=== PATIENT | female | born 1945 | race Caucasian/White ===

== ENCOUNTER 2017-01-01 09:22 | Emergency (ER) | payer OTHER ==
[2017-01-01 09:29] VITALS: BP 120/62; PULSE 78; RESP 20; TEMP 98; O2SAT 98
--- NOTE | 2017-01-01 10:19 | UCPHY ---
H & P Time Seen by Provider: 01/01/17 09:25 Patient Type: New HPI/ROS: 71-year-old female presents complaining of cough fevers chills, nasal congestion , sinus congestion. Review of systems As per HPI-nasal congestion sinus congestion General positive fever positive chills positive weakness HEENT no eye pain no eye discharge. No eye redness, positive sore throat Respiratory positive cough, no shortness of breath Cardiac no chest pain, no peripheral edema GI no abdominal pain, no diarrhea, no constipation, no nausea, no vomiting no flank pain, no hematuria, no dysuria Musculoskeletal no myalgias, no joint pain Heme no easy bruising, no easy bleeding Endo no polyuria, no polydipsia Skin no rashes, no pruritus Neuro no syncope, no dizziness, no headaches Psych is no suicidal ideation, no homicidal ideation Past Medical/Surgical History: Noncontributory Smoking Status: Never smoked Physical Exam: 71-year-old female alert and oriented no acute distress nontoxic appearance Alert and oriented nontoxic appearance, no acute distress afebrile Atraumatic normocephalic Extraocular muscles intact, anicteric Nares mild yellowish discharge, positive nasal turbinates swelling and erythema Oropharynx mild erythema no tonsillar swelling no exudate no uvular deviation, tolerating own secretions Neck supple no lymphadenopathy Lungs clear to auscultation bilaterally Heart regular rate and rhythm Abdomen normoactive bowel sounds soft nontender Extremities no cyanosis clubbing or edema Skin no rash Constitutional: Initial Vital Signs Temperature (C) 36.6 C 01/01/17 09:27 Heart Rate 78 01/01/17 09:27 Respiratory Rate 20 01/01/17 09:27 Blood Pressure 120/62 01/01/17 09:27 O2 Sat (%) 98 01/01/17 09:27 O2 Delivery Mode Room Air Allergies/Adverse Reactions: promethazine HCl [From Phenergan] Allergy (Verified 12/16/15 07:53) Home Medications: Medication Instructions Recorded Amoxicillin/Clavulanate Pot 875 mg PO BID #14 tab 01/01/17 [Augmentin 875 MG TAB (*)] Fluticasone Nasal [Flonase Nasal 2 sprays NASAL DAILY #1 mdi 01/01/17 [place]] Medical Decision Making ED Course/Re-evaluation: Patient seen and evaluated for cough, congestion both nasal and sinus muscles sore throat, fevers chills myalgias Influenza negative Rapid strep negative Differential diagnosis considered Influenza, bronchitis, pneumonia, viral syndrome, pharyngitis, sinusitis Impression Sinusitis Plan Augmentin Fluticasone Follow-up PCP - Data Points Laboratory Results: 01/01/17 09:30 Influenza Typ A,B (DFA) NEGATIVE FOR FLU (NEGATIVE) Departure - Departure Disposition: Home, Routine, Self-Care Clinical Impression: Sinusitis Condition: Good Instructions: Sinusitis (ED) Referrals: Soledad Ortiz MD [Primary Care Provider] - As per Instructions Prescriptions: Amoxicillin/Clavulanate Pot [Augmentin 875 MG TAB (*)] 875 mg PO BID #14 tab Fluticasone Nasal [Flonase Nasal [place]] 2 sprays NASAL DAILY #1 mdi - PQRS PQRS Measurement: na
== END 2017-01-01 10:28 | disposition home or self-care (01) ==
LOC: CED 09:22
DX: J32.9 Chronic sinusitis, unspecified (principal)
CPT/HCPCS: 87400-PO; 99202-PO; G0463-PO

== ENCOUNTER 2017-09-23 10:30 | Emergency (ER) | payer OTHER ==
[2017-09-23 10:44] VITALS: PULSE 84; RESP 16; TEMP 97.9; O2SAT 96
--- NOTE | 2017-09-23 10:58 | EDPHY ---
H & P Time Seen by Provider: 09/23/17 10:42 HPI/ROS: This patient complains of a 7 day history of coughing. She reports the cough is dry during the day and productive of yellow sputum at night. Over the past 24 hours she has developed feeling of slight chest congestion and bronchial pain when she coughs. She reports diminished sleep due to frequent coughing at night only sleeping about 3 hours per night over this past week. She reports associated fatigue she attributes to decreased sleep. She tried Sudafed, Robitussin and [place] cold medications without improvement her symptoms. She notes no other exacerbating factors for symptoms. Patient drove herself here by private vehicle for further evaluation of her symptoms. ROS: No fevers or chills. She has fatigue that she attributes to the left sleep. HEENT: [place] but no nasal congestion. She reports a moderate sore throat. She still tolerating good p.o. intake despite the sore throat. No ear pain. No change in her voice. Pulmonary: No pleuritic pain. No shortness of breath. Cardiovascular: She describes a bronchial burning pain when she coughs but no baseline chest pain. No lower extremity swelling or calf pain. Neuro: No focal numbness or tingling. She reports slight difficulty concentrating she attributes to less sleep than usual. GI: No nausea vomiting diarrhea Integumentary: No skin rash 10 point ROS is otherwise negative. Past Medical/Surgical History: Otherwise healthy Smoking Status: Never smoked Physical Exam: Physical Exam Vital signs are normal. General: No acute distress HEENT: Nose: Clear discharge bilaterally. No sinus tenderness to percussion. Ears: External canals and tympanic membranes are clear with no erythema or abnormal findings bilaterally. Oropharynx: No erythema or exudates. No dysphonia. No drooling or stridor. Eyes: Pupils equal and react to light. Extraocular motions are intact. Neck: Supple with no meningismus. No lymphadenopathy Lungs: Faint expiratory wheeze with forced exhalation in minimal rhonchi on right but no rales. Cardiac: Regular rate and rhythm with no murmur gallop or rub. No lower extremity swelling or tenderness to the calf. Skin: No rash or pallor. Neuro: Alert with no focal deficits noted. Initial differential diagnosis: URI with cough, viral bronchitis, bacterial bronchitis Constitutional: Initial Vital Signs Temperature (C) 36.6 C 11/28/17 10:35 Heart Rate 84 09/23/17 10:35 Respiratory Rate 16 09/23/17 10:35 Blood Pressure 153/77 H 09/23/17 10:35 O2 Sat (%) 96 09/23/17 10:35 O2 Delivery Mode Room Air Allergies/Adverse Reactions: promethazine HCl [From Phenergan] Allergy (Verified 09/23/17 10:39) Pt states makes her sleepy Home Medications: Medication Instructions Recorded Albuterol Hfa Anes Only [Proair 2 puffs IH Q4 PRN #1 mdi 09/23/17 Hfa Icu (*)] Azithromycin [Zithromax] 250 mg PO DAILY #6 tab 09/23/17 Benzonatate [Tessalon Pearles (RX)] 100 - 200 mg PO TID PRN #20 cap 09/23/17 MDM/Departure - [facility] ED Course/Re-evaluation: Discussion: Patient with normal vital signs and no findings that would suggest lower respiratory infection, sepsis or other complicating factors. Also, given symptoms for 1 week with no fevers or myalgias, I do not think she has influenza. She has mild bronchial symptoms and findings but given age will cover with Zithromax antibiotic. Will also treated with albuterol and Tessalon Perles. Patient understands the need to return for any significant worsening of her symptoms despite the treatment plan. - Depart Disposition: Home, Routine, Self-Care Clinical Impression: Acute bronchitis Qualifiers: Bronchitis organism: unspecified organism Qualified Code(s): J20.9 - Acute bronchitis, unspecified Condition: Good Instructions: Acute Bronchitis (ED) Additional Instructions: Diagnosis: Acute bronchitis Plan: Humidifier Albuterol inhaler with spacer for cough, wheeze or shortness of breath as needed. Zithromax antibiotic A Tessalon Perles as a cough suppressant if needed. Your symptoms should improve over the next 5-7 days. Return for any significant worsening despite treatment plan Follow up with primary care physician for any ongoing symptoms despite the treatment Prescriptions: Albuterol Hfa Anes Only [Proair Hfa Icu (*)] 2 puffs IH Q4 PRN #1 mdi PRN Reason: Wheezing Azithromycin [Zithromax] 250 mg PO DAILY #6 tab Benzonatate [Tessalon Pearles (RX)] 100 - 200 mg PO TID PRN #20 cap PRN Reason: cough Referrals: Soledad Ortiz MD [Primary Care Provider] - As per Instructions
[2017-09-23 11:06] VITALS: BP 147/82
== END 2017-09-23 11:03 | disposition home or self-care (01) ==
LOC: CED 10:30
DX: J20.9 Acute bronchitis, unspecified (principal)